=== PATIENT | female | born 1980 | race Two or more races ===

== ENCOUNTER 2024-09-04 20:30 | Emergency (ER) | payer OTHER, MEDICAID ==
[~2024-09-04] VITALS: Ht 175.3 cm; Wt 109.0 kg
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
[2024-09-04] MEDS: ACETAMINOPHEN 500 MG TAB or CAP PO ONE (21:37)
[2024-09-04] MEDS: IBUPROFEN 600 MG TAB PO ONE (21:37)
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
[2024-09-04 22:20] VITALS: BP 150/74; PULSE 68; RESP 19; TEMP 98.3; O2SAT 99
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
== END 2024-09-04 23:00 | disposition left against medical advice (07) ==
LOC: EDBD 20:30 → ER 20:30
DX: M54.2 Cervicalgia (principal); I10 Essential (primary) hypertension; R51.9 Headache, unspecified; Z88.0 Allergy status to penicillin; V89.2XXA Person injured in unspecified motor-vehicle accident, traffic, initial encounter; Y93.89 Activity, other specified; Y92.410 Unspecified street and highway as the place of occurrence of the external cause; Y99.8 Other external cause status
CPT/HCPCS: 70450; 72125